=== PATIENT | male | born 1980 | race Caucasian/White ===

== ENCOUNTER 2016-08-29 09:43 | Emergency (ER) | payer OTHER ==
[2016-08-29] MEDS ORDERED: HYDROCODONE/APAP 5/325 TAB PO ONE (10:54)
--- NOTE | 2016-08-29 11:01 | UCPHY ---
H & P Time Seen by Provider: 08/29/16 10:45 Patient Type: New HPI/ROS: HPI Neck pain, fingers numb. 35-year-old male by private vehicle with his . Patient reports that 3 days ago he woke up with atraumatic left-sided neck pain. He reports that this has gradually been worsening over the last 3 days. It is aggravated by turning his head. He reports that for the last 24-48 hours he has had pain and numbness in his left hand and specifically the 4th and 5th digits. ROS: Constitutional: No fever, no chills. No weakness. Musculoskeletal: No back pain. As above. Skin: No rashes. No lacerations or abrasions. Neurological: No headache. As above. Past medical history: Denies any significant past medical history. Social history: Here with his . Physical Exam: General Appearance: Alert, no distress. This patient is responding to questions appropriately and in full sentences. This patient appears well- hydrated and well-nourished. Neurological: Motor sensory function is grossly intact except for paresthesia left upper extremity ulnar nerve distribution. Axillary nerve distribution is intact. Cranial nerves are normal. Gait is normal. Skin: Warm and dry, no rashes. Musculoskeletal: Neck is supple with paracervical tenderness on palpation on the left side from the mid trapezius up through C5. He does not have significant midline cervical spine tenderness. No edema, erythema, warmth, ecchymosis on inspection of the soft tissues of his cervical spine and left trapezius. Extremities are symmetrical. All joints range without pain or impingement. Psychiatric: No agitation. No depression. Database: EKG: Imaging: Procedures: Emergency department course: 11:00 a.m., after my evaluation, I discussed the need for MRI of the cervical spine. He will be sent to the [facility] Emergency Department to have this study done. He was given 600 mg of ibuprofen and 2 Rena Lara in the urgent care. His will be driving. I spoke with physician diet assistant Amber Navarro who is aware the patient is coming to the emergency department at [facility] and will follow up on the results of his cervical spine MRI and disposition appropriately. The patient was discharged for transfer to the [facility] Emergency Department in good condition. Differential Diagnosis: The differential diagnosis on this patient includes but is not limited to cervical radiculopathy, bulging intervertebral cervical disc. Acute fracture, subluxation, dislocation of the cervical spine unlikely This represents a partial list of diagnoses considered. These considerations are based on history , physical exam, past history, reassessment and diagnostic testing. Smoking Status: Never smoked Constitutional: Initial Vital Signs Temperature (C) 36.7 C 08/29/16 10:07 Heart Rate 74 08/29/16 10:07 Respiratory Rate 16 08/29/16 10:07 Blood Pressure 117/86 H 08/29/16 10:07 O2 Sat (%) 96 08/29/16 10:07 O2 Delivery Mode Room Air Allergies/Adverse Reactions: No Known Allergies Allergy (Unverified 08/29/16 10:07) Home Medications: Medication Instructions Recorded Hydrochlorothiazide 03/09/16 MDM/Departure - Depart Disposition: [facility] ER Clinical Impression: Neck pain, Cervical radiculopathy at C7 Condition: Good Instructions: Neck Pain (ED), Cervical Radiculopathy (ED) Additional Instructions: Read and follow provided instructions. Go straight to the [facility] Emergency Department as discussed for MRI of your cervical spine. Physician diet assistant Amber Navarro and the staff there are aware your coming. Ibuprofen dosin mg every 6 hours with meals for the next 3 days only. Rena Lara/Percocet dosin-2 every 4-[address] for [address] not drive on this medication. Referrals: Joaquim Cai MD [Primary Care Provider] - As per Instructions - PQRS PQRS Measurement: Not applicable.
[2016-08-29 11:35] VITALS: RESP 18; O2SAT 96
--- NOTE | 2016-08-29 12:58 | EDPHY ---
H & P Time Seen by Provider: 08/29/16 12:00 HPI/ROS: CHIEF COMPLAINT: neck pain HISTORY OF PRESENT ILLNESS: 35-year-old male presents to the emergency department after being seen at the [facility] for left -sided neck pain. He has been referred here for an MRI. Patient woke up left- sided neck pain 3 days ago that has been worsening and aggravated with movement. Patient complains of numbness and pain down his left arm and into his left hand including his 4th and 5th fingers. Patient denies trauma, no fevers or chills, no recent illness. REVIEW OF SYSTEMS: A comprehensive 10 point review of systems is otherwise negative aside from elements mentioned in the history of present illness. Source: Patient, Family Exam Limitations: No limitations - Medical/Surgical History Hx Asthma: No Hx Chronic Respiratory Disease: No Hx Diabetes: No Hx Cardiac Disease: No Hx Renal Disease: No Hx Cirrhosis: No Hx Alcoholism: No Hx HIV/AIDS: No Hx Splenectomy or Spleen Trauma: No Other PMH: denies - Social History Smoking Status: Never smoked - Physical Exam Exam: Physical Exam Gen: Alert and Oriented, NAD HEENT: PERRL, moist mucous membranes NECK: no meningismus, paracervical tenderness on palpation to left side with tenderness to trapezius, no midline tenderness, no swelling or ecchymosis NEURO: Neurologically grossly intact, paresthesias to left upper extremity to triceps down to 4th and 5th digits EXTREMITIES: normal appearing SKIN: no rash or break in skin on exposed skin PSYCH: answers questions appropriately. Constitutional: Initial Vital Signs Temperature (C) 36.7 C 08/29/16 10:07 Heart Rate 74 08/29/16 10:07 Respiratory Rate 16 08/29/16 10:07 Blood Pressure 117/86 H 08/29/16 10:07 O2 Sat (%) 96 08/29/16 10:07 O2 Delivery Mode Room Air Allergies/Adverse Reactions: No Known Allergies Allergy (Unverified 08/29/16 10:07) Home Medications: Medication Instructions Recorded Hydrochlorothiazide 03/09/16 Hydrocodone/APAP 5/325 [Rome 1 tab PO Q4H PRN #14 tab 08/29/16 5/325] Methocarbamol [Robaxin-750] 750 - 1,500 mg PO QID PRN #20 08/29/16 tablet Medical Decision Making - Diagnostics Imaging: MRI cervical spine- Impression: Minimal degenerative changes at C6-C7. No canal stenosis or nerve root impingement is identified. A preliminary report was called to Amber Navarro NP at 1350 hours in the Emergency Department. Dictated By: Oscar De La Rosa MD ED Course/Re-evaluation: 35-year-old male presents with a 3 day history of atraumatic left-sided neck pain with paresthesias down left arm. No evidence of infection. No evidence of Xander's angina. MRI obtained showing a mild central disc bulge at C6 and 7. Patient is discharged with a prescription for [place] and Robaxin. He is given a neurosurgeon for follow-up. I have recommended ice or heat whichever feels better, 600 mg of ibuprofen every 8 hours with food for 5 days, gentle massage. Patient is to return for worsening symptoms, fevers, other questions or concerns. Differential Diagnosis: Diagnosis considered but not limited to torticollis, cervical strain, cervical radiculopathy, muscle spasm - Data Points Medications Given: Discontinued Medications Acetaminophen/Hydrocodone Bitart (Rome 5/325) 2 tab PO EDNOW ONE Stop: 08/29/16 10:55 Last Admin: 08/29/16 11:00 Dose: 2 tab Departure - Departure Disposition: Home, Routine, Self-Care Clinical Impression: Neck pain, Cervical radiculopathy at C7 Condition: Good Instructions: Cervical Radiculopathy (ED), Neck Pain (ED) Additional Instructions: Follow-up with your primary care doctor or the neurosurgeon listed at 1st available appointment. Return to the emergency department for any new symptoms or concerns. Ibuprofen dosin mg every 6 hours with meals for the next 3 days only. Rome/Percocet dosin-2 every 4-[address] for [address] Do not drive on this medication. Referrals: Joaquim Cai MD [Primary Care Provider] - As per Instructions Oralia Mak DO [Doctor of Osteopathy] - As per Instructions ( Neurosurgeon on-call) Stand Alone Forms: Work Excuse Prescriptions: Hydrocodone/APAP 5/325 [Rome 5/325] 1 tab PO Q4H PRN #14 tab PRN Reason: Pain, Moderate Methocarbamol [Robaxin-750] 750 - 1,500 mg PO QID PRN #20 tablet PRN Reason: Spasms
--- NOTE | 2016-08-29 13:58 | MR ---
MRI Cervical Spine (Without Contrast) History: Neck pain and left arm numbness in a 35-year-old male Technique: Sagittal T1, T2 and STIR sequences as well as axial T2 and 3-D gradient echo MR sequences of the cervical spine are obtained without contrast. Findings: Cervical vertebral bodies are normal height, signal intensity and alignment without comp ression fractures or spondylolisthesis. Cerebellar tonsils are in normal position. Cervical spinal c ord demonstrates normal signal without cord edema or myelomalacia. C2-C3: Negative for disk herniation, canal stenosis or nerve root impingement. C3-C4: Negative. C4-C5: Negative. C5-C6: Negative for disk herniation, canal stenosis or nerve root impingement. There is mild facet hy pertrophy. C6-C7: Disk degenerative changes and a mild diffuse disk bulge are seen there is no winsome disk hernia tion, canal stenosis or nerve root impingement. C7-T1: Negative. Impression: Minimal degenerative changes at C6-C7. No canal stenosis or nerve root impingement is identified. A preliminary report was called to Amber Navarro NP at 1350 hours in the Emergency Department.
[2016-08-29 14:28] VITALS: BP 113/67; PULSE 75; TEMP 98.2
== END 2016-08-29 14:25 | disposition home or self-care (01) ==
LOC: CED 09:43
DX: M54.12 Radiculopathy, cervical region (principal)
CPT/HCPCS: G0463-PO

== ENCOUNTER → 2016-10-28 | Outpatient (CLI) | payer OTHER | LOC: CLAB 10:08 | PROVIDERS: ATTEND Family Medicine | DX: S92.514A Nondisplaced fracture of proximal phalanx of right lesser toe(s), initial encounter for closed fracture (principal) | CPT/HCPCS: 73630-PO ==

== ENCOUNTER 2019-02-13 10:20 | Emergency (ER) | payer OTHER | END 2019-02-13 12:37 | disposition home or self-care (01) | LOC: CED 10:20 ==